=== PATIENT | male | born 1955 | race Caucasian/White ===

== ENCOUNTER 2021-12-26 16:58 | Emergency (ER) | payer SELFPAY ==
[~2021-12-26] VITALS: Ht 172.7 cm; Wt 81.6 kg
[2021-12-26] MEDS ORDERED: FINASTERIDE5 MG PO (17:40)
[2021-12-26] MEDS ORDERED: FLOMAX0.4 MG PO (17:41)
[2021-12-26] MEDS ORDERED: NIFEDIPINE ER30 M1 PO (17:41)
[2021-12-26] MEDS ORDERED: SODIUM CHLORIDE 0.9% 1000ML 1,000 ML IV SCH (17:45)
[2021-12-26 17:51] LABS: BASOPHILS % 0.2 % (0.0-1.0); HEMATOCRIT 35.3 % (38.2-49.6); HEMOGLOBIN 11.5 g/dL (14.0-18.0); LYMPHOCYTES # (AUTO) 0.5 (1.0-3.2); LYMPHOCYTES % 4.7 % (18.0-39.1); MEAN CORPUSCULAR HEMOGLOBIN 30.1 pg (28-32); MEAN CORPUSCULAR HGB CONC 32.6 g/dL (31-35); MEAN CORPUSCULAR VOLUME 92.4 fL (81-99); MONOCYTES % 9.4 % (4.4-11.3); NEUTROPHILS # (AUTO) 8.7 (2.1-6.9); NEUTROPHILS % 85.4 % (38.7-80.0); PLATELET COUNT 253 x10e3/uL (140-360); RED BLOOD COUNT 3.82 x10e6/uL (4.3-5.7); RED CELL DISTRIBUTION WIDTH 13.2 % (11.7-14.4)
[2021-12-26 18:14] LABS: INR 0.92; PROTHROMBIN TIME 13.2 seconds (11.9-14.5)
[2021-12-26 18:15] LABS: PARTIAL THROMBOPLASTIN TIME 28.1 seconds (23.8-35.5)
[2021-12-26 19:20] LABS: ALBUMIN 3.2 g/dL (3.5-5.0); ALBUMIN/GLOBULIN RATIO 0.8 (0.8-2.0); ANION GAP 19.3 mmol/L (8-16); CALCIUM 9.8 mg/dL (8.4-10.2); CREATININE, SERUM 3.83 mg/dL (0.72-1.25); POTASSIUM 4.3 mmol/L (3.5-5.1)
[2021-12-26 19:41] LABS: CLARITY,URINE TURBID (CLEAR); KETONES,URINE 1+ (NEGATIVE); LEUKOCYTE ESTERASE ,URINE LARGE (NEGATIVE); NITRITE,URINE POSITIVE (NEGATIVE); PROTEIN,URINE DIPSTICK >=300 (NEGATIVE); URINE UROBILINOGEN 2 mg/dL (0.2 - 1)
[2021-12-26 19:44] LABS: COLOR,URINE RED (YELLOW)
[2021-12-26 19:45] LABS: BACTERIA,URINE MODERATE /HPF; RBC,URINE >50 /HPF (0-5); WBC,URINE (MAN) 21-50 /HPF (0-5)
== END 2021-12-27 00:22 | disposition short-term general hospital (02) ==
LOC: ER 17:04
DX: N17.8 Other acute kidney failure (principal); N13.9 Obstructive and reflux uropathy, unspecified; I10 Essential (primary) hypertension; Z20.822 Contact with and (suspected) exposure to COVID-19; Z88.1 Allergy status to other antibiotic agents
CPT/HCPCS: 36415; 51700; 74176; 80053; 81001; 85025; 85610; 85730; 87086; 99284; J0696; J7030; U0002; 87186

== ENCOUNTER 2022-01-07 12:57 | Emergency (ER) | payer SELFPAY ==
[~2022-01-07] VITALS: Ht 172.7 cm; Wt 81.6 kg
[~2022-01-07 12:57] MED LIST: FINASTERIDE5 MG PO; FLOMAX0.4 MG PO; NIFEDIPINE ER30 M1 PO
== END 2022-01-07 15:37 | disposition home or self-care (01) ==
LOC: ER 13:32
DX: R33.9 Retention of urine, unspecified (principal); I10 Essential (primary) hypertension; Z88.0 Allergy status to penicillin
CPT/HCPCS: 51700; 99283